=== PATIENT | female | born 1990 | race American Indian/Alaskan Native ===

== ENCOUNTER 2021-06-20 02:02 | Emergency (ER) | payer BC, MEDICAID ==
[2021-06-20] MEDS ORDERED: Ondansetron 4 MG/2 ML SDV IVPUSH ONE (02:10)
[2021-06-20] MEDS ORDERED: Sodium Chloride 0.9% 1,000 ML IV ONE (02:10)
[2021-06-20 02:36] LABS: BLOOD UREA NITROGEN,BUN 11 mg/dL (7.0-18.0); CARBON DIOXIDE,CO2 21.8 mmol/L (21.0-32.0); CHLORIDE,CL 101 mmol/L (98-107); GLUCOSE RANDOM 150 mg/dL (74-106); LIPASE 41 U/L (73-393); SODIUM,NA 136 mmol/L (136-145)
== END 2021-06-20 03:35 | disposition home or self-care (01) ==
LOC: MW.ED 02:02
DX: F10.129 Alcohol abuse with intoxication, unspecified (principal); R11.10 Vomiting, unspecified
CPT/HCPCS: 36415; 71045; 80053; 83690; 83735; 84703; 85025; 96374; 99284; J2405; J7030; 99282

== ENCOUNTER 2022-09-24 05:50 | Inpatient (IN) | payer SELFPAY ==
[2022-09-24] MEDS ORDERED: Water For Irrigation,Sterile 1,000 ML Container IRR PRN (07:20)
[2022-09-24] MEDS ORDERED: Carboprost Tromethamine 250 MCG/1 mL Vial IM PRN (07:20)
[2022-09-24] MEDS ORDERED: Butorphanol 1 MG/ML SDV IVPUSH PRN (07:20)
[2022-09-24] MEDS ORDERED: Sodium Chloride 0.9% 20 ML SDV IV PRN (07:20)
[2022-09-24] MEDS ORDERED: Methylergonovine 0.2 MG/1 ML Amp IM PRN (07:20)
[2022-09-24] MEDS ORDERED: Sodium Chloride 0.9% 10 ML Syringe FLUSH PRN (07:20)
[2022-09-24] MEDS ORDERED: Tranexamic Acid 1,000 MG in Sodium Chloride 0.9% 100 ML IV PRN (07:20)
[2022-09-24] MEDS ORDERED: Misoprostol 200 MCG Tab PO PRN (07:20)
[2022-09-24] MEDS ORDERED: Ampicillin 2 GM in Sodium Chloride 0.9% 100 ML IV ONE (07:20)
[2022-09-24] MEDS ORDERED: Lidocaine 1% 50 ML MDV INJECT PRN (07:20)
[2022-09-24] MEDS ORDERED: Sodium Chloride 0.9% 2.5 ML Syringe FLUSH PRN (07:20)
[2022-09-24] MEDS ORDERED: Lactated Ringers 1,000 ML IV SCH (07:30)
[2022-09-24] MEDS ORDERED: Oxytocin/0.9 % Sodium Chloride 30 UNIT/500 ML BAG IV SCH ×2 (07:30→12:30)
[2022-09-24 08:05] LABS: HEMOGLOBIN 13.3 g/dL (12.0-16.0); MEAN CORPUSCULAR HEMOGLOBIN 29.6 pg (27.0-32.0); MEAN CORPUSCULAR HGB CONC 34.1 g/dL (31.0-37.0); MEAN CORPUSCULAR VOLUME 86.7 fL (80.0-98.0); MEAN PLATELET VOLUME 13.4 fL (7.40-12.00); RED BLOOD CELL COUNT 4.5 M/uL (4.30-5.90); WHITE BLOOD CELL COUNT,WBC 11.62 K/uL (4.0-11.0)
[2022-09-24] MEDS ORDERED: Nalbuphine HCl 10 MG/ 1ML Amp IVPUSH SCH (10:21)
[2022-09-24 10:32] LABS: APPEARANCE,URINE CLOUDY; COLOR,URINE YELLOW; GLUCOSE,URINE NEGATIVE (NEGATIVE); KETONES,URINE 40 mg/dL (NEGATIVE); LEUKOCYTE ESTERASE,URINE TRACE (NEGATIVE); NITRITE,URINE NEGATIVE (NEGATIVE); OCCULT BLOOD,URINE MODERATE (NEGATIVE); PH,URINE 6.5 (5.0-8.0); PROTEIN,URINE 30 mg/dL (NEGATIVE)
[2022-09-24] MEDS: Nalbuphine HCl 10 MG/ 1ML Amp IVPUSH PRN ×2 (10:32→13:20)
[2022-09-24 10:33] LABS: BILIRUBIN,URINE SMALL (NEGATIVE)
[2022-09-24 10:41] LABS: AMPHETAMINES SCREEN, URINE NEGATIVE (CUTOFF=500); BARBITURATE SCREEN,URINE NEGATIVE (CUTOFF=200); BENZODIAZEPINES SCREEN,URINE NEGATIVE (CUTOFF=150); BUPRENORPHINE SCREEN,URINE NEGATIVE (CUTOFF=10); METHADONE SCREEN, URINE NEGATIVE (CUTOFF=200); METHAMPHETAMINES SCREEN, URINE NEGATIVE (CUTOFF=500); OXYCODONE SCREEN,URINE NEGATIVE (CUT0FF=100); PCP SCREEN,URINE NEGATIVE (CUTOFF=25); PROPOXYPHENE SCREEN,URINE NEGATIVE (CUTOFF=300); THC SCREEN,URINE 20 NG/ML NEGATIVE (CUTOFF=50)
[2022-09-24 10:45] LABS: AMORPHOUS SEDIMENT,URINE OCCASIONAL (NEGATIVE); BACTERIA,URINE MODERATE (NEGATIVE); EPITHELIAL CELLS,URINE MANY (NONE-FEW); HYALINE CASTS,URINE FEW (0-2/LPF); MUCUS,URINE MANY (NONE-MOD); RBC,URINE 20-30 (0-2/HPF); SQUAMOUS EPITHELIAL CELLS,UR MANY
[2022-09-24] MEDS: Ampicillin 1 GM in Sodium Chloride 0.9% 50 ML IV SCH ×3 (11:21→20:31)
[2022-09-24 12:12] LABS: C. TRACHOMATIS BY PCR NOT DETECTED; N. GONORRHOEAE BY PCR NOT DETECTED
[2022-09-24] MEDS ORDERED: Terbutaline 1 MG/ML SDV SUBCUT PRN (12:23)
[2022-09-24] MEDS ORDERED: Docusate Sodium 100 MG Cap PO PRN (16:42)
[2022-09-24] MEDS ORDERED: Ibuprofen 400 MG Tab PO PRN (16:42)
[2022-09-24] MEDS ORDERED: Bisacodyl 10 MG Supp RECTAL PRN (16:42)
[2022-09-24] MEDS ORDERED: Acetaminophen 500 MG Tab PO PRN ×2 (16:42)
[2022-09-24] MEDS ORDERED: oxyCODONE 5 MG Tab PO PRN (16:42)
[2022-09-24] MEDS ORDERED: Benzocaine/Menthol 20%-0.5% Spray 78 GM Cannister TOP PRN (16:42)
[2022-09-24] MEDS ORDERED: Lanolin 100% Cream 7 GM Tube TOP PRN (16:42)
[2022-09-24] MEDS ORDERED: Witch Hazel Medicated Pads 40/Jar TOP PRN (16:42)
[2022-09-25] MEDS: Ibuprofen 800 MG Tab PO PRN ×2 (01:01→23:13)
[2022-09-25 03:13] LABS: GROUP B STREP BY PCR POSITIVE (NEGATIVE)
[2022-09-25] MEDS: Ampicillin 1 GM in Sodium Chloride 0.9% 50 ML IV SCH (04:51)
[2022-09-25 06:19] LABS: HEMATOCRIT 31.6 % (36.0-46.0); HEMOGLOBIN 10.9 g/dL (12.0-16.0)
[2022-09-26] MEDS: Ibuprofen 800 MG Tab PO PRN (08:04)
== END 2022-09-26 12:50 | disposition home or self-care (01) | DRG 806 ==
LOC: MW.OBCHECK 05:50 → MW.OB 05:52 → MW.OBCHECK 07:20 → OBSVTOIN 14:47 → MW.OB 19:57
PROVIDERS: ADMIT Obstetrics & Gynecology; ATTEND Obstetrics & Gynecology
PROC: 10E0XZZ Delivery of Products of Conception, External Approach (ICD-10-PCS; principal; 2022-09-24)
DX: O42.013 Preterm premature rupture of membranes, onset of labor within 24 hours of rupture, third trimester (principal); O98.82 Other maternal infectious and parasitic diseases complicating childbirth; Z37.0 Single live birth; B95.1 Streptococcus, group B, as the cause of diseases classified elsewhere
CPT/HCPCS: 36415; 59025; 59409; 80305-QW; 81001; 85014; 85018; 85027; 86592; 86762; 86803; 86850; 86900; 86901; 87086; 87340; 87389; 87491; 87591; 87653; A9270-GY; J0290; J2300; J2590; J3490; J7120